=== PATIENT | male | born 1970 | race Caucasian/White ===

== ENCOUNTER 2021-06-06 14:45 | Emergency (ER) | payer OTHER ==
[~2021-06-06 14:45] MED LIST: ACID REDUCER150 MG PO; PROBIOTIC1 EACH PO; PROTONIX40 MG PO
[2021-06-06 16:09] LABS: BASOPHIL 0.3 % (0-2); EOSINOPHIL 0 % (0-5); HCT 45.5 % (42.0-52.0); LYMPHOCYTE 13.5 % (15-48); MCH 26.5 pg (25.0-31.0); MCV 80.5 fL (78.0-100.0); MONOCYTE 3.4 % (0-12); MPV 10.2 fL (6.0-9.5); NEUTROPHIL 82.3 % (41-80); NRBC 0; PLT 125 K/uL (150-400); RBC 5.65 M/uL (4.70-6.00); RDW 15.2 % (11.5-14.0); WBC 3.8 K/uL (4.0-10.5)
[2021-06-06 16:30] LABS: INR 1.05 (0.9-1.2); PROTHROMBIN TIME 13.1 SECONDS (11.8-13.4); PTT 33.3 SECONDS (24.4-34.7)
[2021-06-06 16:52] LABS: ALBUMIN 3.7 g/dL (3.4-5.0); BILIRUBIN - TOTAL 0.5 mg/dL (0.2-1.0); BUN/CREAT RATIO (CALC) 11.5 RATIO; C-REACTIVE PROTEIN 10.2 mg/dL (<=0.90); CREATININE 1.22 mg/dL (0.67-1.17); GLOBULIN (CALCULATION) 3.1 g/dL; MAGNESIUM 1.8 mg/dL (1.8-2.4); POTASSIUM 3.9 mmol/L (3.5-5.1); TOTAL PROTEIN 6.8 g/dL (6.4-8.2)
[2021-06-06 18:19] LABS: BILIRUBIN NEGATIVE (NEGATIVE); BLOOD 2+ Ery/uL (NEGATIVE); CLARITY CLEAR (CLEAR); COLOR YELLOW (YELLOW); GLUCOSE (U) NORMAL (NORMAL); LEUKOCYTES NEGATIVE Leu/uL (NEGATIVE); NITRITE NEGATIVE (NEGATIVE); PROTEIN 1+ mg/dL (NEGATIVE); UROBILINOGEN 0.2 mg/dL (0.2-1.0)
[2021-06-06] MEDS ORDERED: TESSALON PERLE100 M1 PO (18:34)
[2021-06-06] MEDS ORDERED: ONDANSETRON ODT4 MG PO (18:34)
[2021-06-06] MEDS ORDERED: MEDROL 4MG DOSEP4 MG PO (18:34)
[2021-06-06] MEDS ORDERED: NORCO 5-325 TA1 EACH PO (18:34)
[2021-06-06] MEDS ORDERED: VENTOLIN HFA18 GM INH (18:34)
[2021-06-06 18:36] LABS: BACTERIA TRACE; GRANULAR CASTS TRACE
== END 2021-06-06 19:46 | disposition home or self-care (01) ==
LOC: FER 14:45
PROVIDERS: Emergency Medicine
DX: Z53.8 Procedure and treatment not carried out for other reasons (principal)
CPT/HCPCS: 36415; 70450; 71250; 80053; 81001; 82728; 83605; 83615; 83735; 84145; 84443; 85025; 85610; 85730; 86140; 93005; J1100; J1170; J2405; J7030; M0243; Q0244

== ENCOUNTER 2021-06-08 11:24 | Inpatient (IN) | payer OTHER ==
[~2021-06-08] VITALS: Ht 182.9 cm; Wt 103.0 kg
[~2021-06-08 11:24] MED LIST changes: +MEDROL 4MG DOSEP4 MG PO; +NORCO 5-325 TA1 EACH PO; +ONDANSETRON ODT4 MG PO; +TESSALON PERLE100 M1 PO; +VENTOLIN HFA18 GM INH
[2021-06-08 12:04] LABS: BASOPHIL 0.2 % (0-2); EOSINOPHIL 0 % (0-5); HCT 40.9 % (42.0-52.0); HGB 13.7 g/dl (13.2-18.0); LYMPHOCYTE 12.7 % (15-48); MCH 26.7 pg (25.0-31.0); MCHC 33.5 g/dL (32.0-36.0); MCV 79.6 fL (78.0-100.0); MONOCYTE 4.5 % (0-12); MPV 10.1 fL (6.0-9.5); NEUTROPHIL 81.9 % (41-80); NRBC 0; PLT 156 K/uL (150-400); RBC 5.14 M/uL (4.70-6.00); RDW 15.5 % (11.5-14.0); WBC 4.4 K/uL (4.0-10.5)
[2021-06-08 12:12] LABS: INR 1.07 (0.9-1.2); PROTHROMBIN TIME 13.3 SECONDS (11.8-13.4)
[2021-06-08 12:33] LABS: ALBUMIN 3.2 g/dL (3.4-5.0); BILIRUBIN - DIRECT 0.1 mg/dL (0.00-0.20); BILIRUBIN - TOTAL 0.5 mg/dL (0.2-1.0); BUN/CREAT RATIO (CALC) 14.3 RATIO; C-REACTIVE PROTEIN 10.6 mg/dL (<=0.90); CREATININE 1.05 mg/dL (0.67-1.17); GLOBULIN (CALCULATION) 3.5 g/dL; POTASSIUM 3.5 mmol/L (3.5-5.1); TOTAL PROTEIN 6.7 g/dL (6.4-8.2)
[2021-06-08] MEDS ORDERED: METFORMIN HCL500 MG PO ×2 (16:20→16:23)
[2021-06-08] MEDS ORDERED: METFORMIN HCL500 M3 PO (16:22)
[2021-06-08] MEDS ORDERED: COZAAR50 MG PO (16:23)
[2021-06-08] MEDS ORDERED: ANASTROZOLE1 MG PO (16:28)
[2021-06-09 05:41] LABS: BASOPHIL 0.3 % (0-2); EOSINOPHIL 0 % (0-5); HCT 41.6 % (42.0-52.0); HGB 13.5 g/dl (13.2-18.0); LYMPHOCYTE 15.9 % (15-48); MCH 26.2 pg (25.0-31.0); MCHC 32.5 g/dL (32.0-36.0); MCV 80.6 fL (78.0-100.0); MONOCYTE 6.1 % (0-12); MPV 10.2 fL (6.0-9.5); NEUTROPHIL 76.9 % (41-80); NRBC 0; PLT 199 K/uL (150-400); RBC 5.16 M/uL (4.70-6.00); RDW 15.6 % (11.5-14.0); WBC 3.9 K/uL (4.0-10.5)
[2021-06-09 05:56] LABS: ALBUMIN 3.1 g/dL (3.4-5.0); BILIRUBIN - TOTAL 0.4 mg/dL (0.2-1.0); BUN/CREAT RATIO (CALC) 17.5 RATIO; CREATININE 0.97 mg/dL (0.67-1.17); GLOBULIN (CALCULATION) 3.7 g/dL; POTASSIUM 4.5 mmol/L (3.5-5.1); TOTAL PROTEIN 6.8 g/dL (6.4-8.2)
[2021-06-10 07:26] LABS: BASOPHIL 0.2 % (0-2); EOSINOPHIL 0.2 % (0-5); HCT 42.3 % (42.0-52.0); HGB 13.7 g/dl (13.2-18.0); LYMPHOCYTE 17.4 % (15-48); MCH 26.3 pg (25.0-31.0); MCHC 32.4 g/dL (32.0-36.0); MCV 81.2 fL (78.0-100.0); MONOCYTE 6.3 % (0-12); MPV 10.5 fL (6.0-9.5); NEUTROPHIL 74.9 % (41-80); NRBC 0; PLT 255 K/uL (150-400); RBC 5.21 M/uL (4.70-6.00); RDW 15.6 % (11.5-14.0); WBC 5.1 K/uL (4.0-10.5)
[2021-06-10 07:57] LABS: ALBUMIN 2.9 g/dL (3.4-5.0); BILIRUBIN - TOTAL 0.5 mg/dL (0.2-1.0); BUN/CREAT RATIO (CALC) 19.1 RATIO; CREATININE 0.94 mg/dL (0.67-1.17); GLOBULIN (CALCULATION) 3.5 g/dL; POTASSIUM 4.1 mmol/L (3.5-5.1); TOTAL PROTEIN 6.4 g/dL (6.4-8.2)
[2021-06-10] MEDS ORDERED: DEXAMETHASONE 2M2 MG PO (11:34)
--- NOTE | 2021-06-10 12:06 | NUR ---
PER DR. BYRD PT. WILL NEED 3 L NC OF O2. FAXED [facility] AT [facility] IN[facility] TO DELIVER A PORTABLE AND HOME CONCENTRATOR.
[2021-06-10] MEDS ORDERED: ADVAIR HFA 230-28 GM INH (13:48)
--- NOTE | 2021-06-10 19:07 | NUR ---
SPOKE WITH [facility] AT [facility] AND INFORMED PATIENT HASN'T RECEIVED HIS O2 AT HOME, HE HAS CALLED THE NUMBER FROM WHEN THEY HAD CALLED HIM IN THE HOSPITAL BEFORE HE LEFT. I CALLED BACK [facility] AND INFORMED THEM HE IS ALMOST OUT OF THE TANK HE LEFT WITH AND SHE STATED THEY WOULD HAVE HIS THERE BEFORE THEN. PATIENT CALLED BACK AND INFORMED OF THIS AND THAT IF HE RAN OUT WOULD NEED TO COME BACK TO ER DIRECTED BY MD AND STAFF
== END 2021-06-10 15:00 | disposition home or self-care (01) | DRG 177 ==
LOC: FER 11:24 → FMS 13:37
PROVIDERS: Emergency Medicine; ADMIT Family Medicine
PROC: 8E0ZXY6 Isolation (ICD-10-PCS; principal; 2021-06-08)
PROC: XW033G6 Introduction of REGN-COV2 Monoclonal Antibody into Peripheral Vein, Percutaneous Approach, New Technology Group 6 (ICD-10-PCS; 2021-06-08)
PROC: XW033E5 Introduction of Remdesivir Anti-infective into Peripheral Vein, Percutaneous Approach, New Technology Group 5 (ICD-10-PCS; 2021-06-08)
DX: U07.1 COVID-19 (principal); J96.01 Acute respiratory failure with hypoxia; J12.82 Pneumonia due to coronavirus disease 2019; G47.33 Obstructive sleep apnea (adult) (pediatric); E11.9 Type 2 diabetes mellitus without complications; I10 Essential (primary) hypertension; Z88.1 Allergy status to other antibiotic agents; Z79.899 Other long term (current) drug therapy; Z79.84 Long term (current) use of oral hypoglycemic drugs; Z85.47 Personal history of malignant neoplasm of testis; Z90.79 Acquired absence of other genital organ(s); Z83.3 Family history of diabetes mellitus; Z82.49 Family history of ischemic heart disease and other diseases of the circulatory system; Z98.890 Other specified postprocedural states
CPT/HCPCS: 36415; 36600; 70450; 71045; 71250; 80048; 80053; 80076; 81001; 82728; 82803; 82962; 83605; 83615; 83735; 84145; 84443; 85025; 85610; 85730; 86140; 87040; 93005; 94010; 94640; 94760; 94762; C9399; J1100; J1170; J1650; J1815; J2405; J7030; J7050; J8540; M0243; Q0244; U0002